=== PATIENT | male | born 1955 | race Asian ===

== ENCOUNTER 2017-06-20 09:08 | Day surgery (SDC) | payer OTHER ==
[2017-06-20] MEDS ORDERED: LACTATED RINGERS 1,000 ML IV ONE (09:17)
[2017-06-20] MEDS ORDERED: fentaNYL 100 MCG/2 ML VIAL IVP ONE (11:15)
[2017-06-20] MEDS ORDERED: MIDAZOLAM 2 MG/2 ML VIAL IVP ONE (11:15)
[2017-06-20 12:43] VITALS: BP 141/86
== END 2017-06-20 09:09 | disposition home or self-care (01) ==
LOC: SDS 09:08
PROVIDERS: ATTEND Surgery
PROC: 0DBC8ZX Excision of Ileocecal Valve, Via Natural or Artificial Opening Endoscopic, Diagnostic (ICD-10-PCS; principal; 2017-06-20 10:15)
DX: R19.5 Other fecal abnormalities (principal); D12.0 Benign neoplasm of cecum; K64.4 Residual hemorrhoidal skin tags; I10 Essential (primary) hypertension; Z79.82 Long term (current) use of aspirin
CPT/HCPCS: 45385; J7120; 88305